=== PATIENT | male | born 1950 | race Caucasian/White ===

== ENCOUNTER → 2021-01-11 | Outpatient (CLI) | payer MEDICARE, OTHER | LOC: EMI 13:00 | DX: S32.011A Stable burst fracture of first lumbar vertebra, initial encounter for closed fracture (principal); M81.0 Age-related osteoporosis without current pathological fracture; M47.816 Spondylosis without myelopathy or radiculopathy, lumbar region; S32.028A Other fracture of second lumbar vertebra, initial encounter for closed fracture | CPT/HCPCS: 72148 ==